=== PATIENT | female | born 1960 | race African-American/Black ===

== ENCOUNTER 2021-05-18 01:17 | Emergency (ER) | payer MEDICARE, MEDICAID ==
[~2021-05-18] VITALS: Ht 167.6 cm; Wt 93.0 kg
[2021-05-18] MEDS ORDERED: HYDROCODONE/ACETAMINOPHEN 5/325MG TABLET PO NR (04:00)
[2021-05-18] MEDS ORDERED: KETOROLAC 15MG/ML VIAL IM NR (04:00)
[2021-05-18] MEDS ORDERED: IBUP-2030 PO (04:26)
[2021-05-18] MEDS ORDERED: HYDR-4001 PO (04:26)
[2021-05-18 07:55] VITALS: BP 126/78
== END 2021-05-18 08:07 | disposition home or self-care (01) ==
LOC: ER 01:17
DX: M54.5 Low back pain (principal); I10 Essential (primary) hypertension; J45.909 Unspecified asthma, uncomplicated; E11.9 Type 2 diabetes mellitus without complications; J44.9 Chronic obstructive pulmonary disease, unspecified
CPT/HCPCS: 96372; 99283; J1885

== ENCOUNTER 2025-09-10 16:57 | Inpatient (IN) | payer MEDICARE, MEDICAID ==
[~2025-09-10] VITALS: Ht 165.1 cm; Wt 109.8 kg
[~2025-09-10 16:57] MED LIST: HYDR-4001 PO; IBUP-2030 PO
[2025-09-10 17:03] VITALS: O2SAT 100
[2025-09-10 21:46] LABS: BASOPHILS % 1.5 % (0.0-2.0); EOSINOPHILS % 3.7 % (0.0-5.0); HEMATOCRIT. 41.4 % (36.0-48.0); HEMOGLOBIN. 13.5 g/dL (12.0-16.0); LYMPHOCYTES % 30.8 % (20.0-50.0); MEAN PLATELET VOLUME 9.1 fl (7.4-10.4); MONOCYTES % 8.5 % (2.0-8.0); NEUTROPHILS % 55.5 % (40.0-76.0); PLATELET 254 x1000/uL (130-400); RED BLOOD CELL COUNT 4.40 mill/uL (4.2-5.4); RED CELL DISTRIBUTION WIDTH 14.2 % (11.6-14.6)
[2025-09-10] MEDS: MORPHINE SULFATE 4 MG/ML INJ (FOR IV/IM USE) IV ONE (21:47)
[2025-09-10] MEDS: SODIUM CHLORIDE 0.9% 1,000 ML IV ONE (21:48)
[2025-09-10] MEDS: BENZONATATE 200MG CAPSULE PO ONE (21:48)
[2025-09-10 22:01] LABS: CREATININE 0.7 mg/dL (0.6-1.0); UREA NITROGEN BLOOD 11 mg/dL (9-23)
[2025-09-10 22:03] LABS: ASPARTATE AMINOTRANSFERASE 24 IU/L (<34); BILIRUBIN DIRECT 0.2 mg/dL (<=3.0); BILIRUBIN TOTAL 0.7 mg/dL (0.1-1.0); PROTEIN TOTAL 7.5 g/dL (6.0-8.3)
[2025-09-10] MEDS: CEFTRIAXONE 1GM/50ML 50 ML IV ONE (23:04)
[2025-09-10] MEDS: VANCOMYCIN 1G PREMIX 200 ML IV ONE (23:43)
[2025-09-11 00:33] LABS: CLARITY URINE CLEAR (CLEAR); COLOR URINE YELLOW (YELLOW); GLUCOSE URINE NEGATIVE (NEGATIVE); KETONES URINE NEGATIVE (NEGATIVE); LEUKOCYTE ESTERASE URINE NEGATIVE (NEGATIVE); NITRITE URINE NEGATIVE (NEGATIVE); OCCULT BLOOD URINE NEGATIVE (NEGATIVE); PH URINE 6.5 (4.5-8.0); PROTEIN URINE NEGATIVE (NEGATIVE); SPECIFIC GRAVITY URINE 1.012 (1.005-1.030); UROBILINOGEN URINE 0.2 E.U./dL (0.2-1.0)
[2025-09-11 04:00] VITALS: BP 160/67; PULSE 89; RESP 20; TEMP 36.6; O2SAT 94
[2025-09-11 04:15] VITALS: BP 160/67; PULSE 89; RESP 20; TEMP 36.5848
[2025-09-11] MEDS ORDERED: DEXTROSE 50% WATER 50ML SYRINGE IV PRN (04:30)
[2025-09-11] MEDS ORDERED: NALOXONE HCL 0.4MG/ML VIAL IV PRN (04:45)
[2025-09-11] MEDS ORDERED: ENOXAPARIN 100MG/ML SYR SUBCUT SCH (05:00)
[2025-09-11] MEDS: HYDROCODONE/ACETAMINOPHEN 5/325MG TABLET PO PRN (05:21)
[2025-09-11] MEDS: POTASSIUM CHLORIDE 20MEQ TABLET SR PO NR (05:33)
[2025-09-11] MEDS: BLOOD SUGAR DIAGNOSTIC STRIP TEST SCH (06:48)
[2025-09-11 08:00] VITALS: BP 163/78; PULSE 78; RESP 16; TEMP 36.7; O2SAT 100
[2025-09-11] MEDS: CLONIDINE 0.1MG TABLET PO SCH (08:50)
[2025-09-11] MEDS: INSULIN LISPRO 100 UNITS/ML SUBCUT SCH (08:51)
[2025-09-11] MEDS ORDERED: ONDANSETRON HCL 4MG/2ML INJ IV PRN (11:30)
[2025-09-11] MEDS ORDERED: IPRATROPIUM/ALBUTEROL 0.5-3(2.5)MG/3ML NEB HHN PRN (11:30)
[2025-09-11] MEDS ORDERED: ACETAMINOPHEN 325MG TABLET PO PRN (11:30)
[2025-09-11 12:00] VITALS: BP 141/67; PULSE 86; RESP 17; TEMP 36.8; O2SAT 100
[2025-09-11 12:49] LABS: BASOPHILS % 0.6 % (0.0-2.0); EOSINOPHILS % 3.2 % (0.0-5.0); HEMATOCRIT. 40.2 % (36.0-48.0); HEMOGLOBIN. 12.8 g/dL (12.0-16.0); LYMPHOCYTES % 31.5 % (20.0-50.0); MEAN PLATELET VOLUME 10.0 fl (7.4-10.4); MONOCYTES % 12.3 % (2.0-8.0); NEUTROPHILS % 52.4 % (40.0-76.0); PLATELET 218 x1000/uL (130-400); RED BLOOD CELL COUNT 4.22 mill/uL (4.2-5.4); RED CELL DISTRIBUTION WIDTH 14.1 % (11.6-14.6)
[2025-09-11 13:06] LABS: CREATININE 0.7 mg/dL (0.6-1.0); TRIGLYCERIDE 58 mg/dL (0-150); UREA NITROGEN BLOOD 9 mg/dL (9-23)
[2025-09-11 13:07] LABS: LDL CHOLESTEROL 63 mg/dL (5-100)
[2025-09-11 13:13] LABS: INR 1.0
[2025-09-11 13:54] LABS: HEPATITIS C AB NON REACTIVE (Neg) (Negative)
[2025-09-11] MEDS: ENOXAPARIN 100MG/ML SYR SUBCUT SCH (14:14)
[2025-09-11] MEDS ORDERED: *PATIENT'S OWN MEDICATION STORAGE XX SCH (14:45)
[2025-09-11 19:58] VITALS: BP 134/62; PULSE 72; RESP 17; TEMP 36.8; O2SAT 100
[2025-09-11 20:00] VITALS: BP 144/73; PULSE 78; RESP 16; TEMP 36.5; O2SAT 97
[2025-09-12] VITALS: BP 134/64; PULSE 73; RESP 18; TEMP 36.7; O2SAT 95
[2025-09-12 04:00] VITALS: BP 145/71; PULSE 67; RESP 17; TEMP 36.7; O2SAT 98
[2025-09-12] MEDS: ACETAMINOPHEN 325MG TABLET PO PRN (04:00)
[2025-09-12 08:00] VITALS: BP 112/60; PULSE 68; RESP 16; TEMP 36.6; O2SAT 100
[2025-09-12 08:05] LABS: BASOPHILS % 0.9 % (0.0-2.0); EOSINOPHILS % 3.1 % (0.0-5.0); HEMATOCRIT. 38.6 % (36.0-48.0); HEMOGLOBIN. 12.5 g/dL (12.0-16.0); LYMPHOCYTES % 40.1 % (20.0-50.0); MEAN PLATELET VOLUME 10.0 fl (7.4-10.4); MONOCYTES % 9.5 % (2.0-8.0); NEUTROPHILS % 46.4 % (40.0-76.0); PLATELET 200 x1000/uL (130-400); RED BLOOD CELL COUNT 4.11 mill/uL (4.2-5.4); RED CELL DISTRIBUTION WIDTH 14.0 % (11.6-14.6)
[2025-09-12 08:13] LABS: CREATININE 0.7 mg/dL (0.6-1.0)
[2025-09-12 08:14] LABS: UREA NITROGEN BLOOD 16 mg/dL (9-23)
[2025-09-12 12:00] VITALS: BP 116/64; PULSE 72; RESP 16; TEMP 36.4; O2SAT 98
[2025-09-12 16:00] VITALS: BP 159/68; PULSE 75; RESP 15; TEMP 36.8; O2SAT 99
[2025-09-12] MEDS: DOCUSATE SODIUM 100MG CAPSULE PO PRN (17:29)
[2025-09-12 20:00] VITALS: BP 144/69; PULSE 69; RESP 16; TEMP 36.7; O2SAT 98
[2025-09-12] MEDS: POLYETHYLENE GLYCOL 3350 (17GM) 1 DOSE PACK PO SCH (21:20)
[2025-09-13] VITALS: BP 140/71; PULSE 65; RESP 18; TEMP 36.1; O2SAT 95
[2025-09-13 04:00] VITALS: BP 130/68; PULSE 69; RESP 20; TEMP 36.2; O2SAT 98
[2025-09-13 08:00] VITALS: BP 143/77; PULSE 68; RESP 17; TEMP 35.9; O2SAT 95
[2025-09-13] MEDS ORDERED: AMLO5TAB88 MT (11:21)
[2025-09-13 12:00] VITALS: BP 155/84; PULSE 68; RESP 17; TEMP 36.1; O2SAT 96
[2025-09-13] MEDS: AMLODIPINE 5MG TABLET PO SCH (12:30)
[2025-09-13 16:00] VITALS: BP 157/75; PULSE 63; RESP 17; O2SAT 97
[2025-09-13 20:00] VITALS: BP 148/56; PULSE 77; RESP 17; TEMP 36.4; O2SAT 95
[2025-09-14] VITALS: BP 147/66; PULSE 67; RESP 18; TEMP 36.5; O2SAT 99
[2025-09-14 04:00] VITALS: BP 147/50; PULSE 67; RESP 19; TEMP 35.9; O2SAT 98
[2025-09-14 08:00] VITALS: BP 147/68; PULSE 77; RESP 18; TEMP 36.1; O2SAT 100
[2025-09-14 12:00] VITALS: BP 135/70; PULSE 80; RESP 18; TEMP 36.7; O2SAT 98
[2025-09-14 16:00] VITALS: BP 140/75; PULSE 75; RESP 18; TEMP 36.4; O2SAT 97
[2025-09-14 20:00] VITALS: BP 105/66; PULSE 69; RESP 16; TEMP 36.5; O2SAT 98
[2025-09-15] VITALS: BP 178/83; PULSE 78; RESP 16; TEMP 36.6; O2SAT 95
[2025-09-15] MEDS: CLONIDINE 0.1MG TABLET PO PRN (01:49)
[2025-09-15 04:00] VITALS: BP 136/60; PULSE 67; RESP 16; TEMP 36.3; O2SAT 98
[2025-09-15] MEDS ORDERED: IOHEXOL-350 100 ML BOTTLE ONE (07:56)
[2025-09-15] MEDS ORDERED: IOHEXOL-350 50 ML BOTTLE ONE (07:57)
[2025-09-15 08:00] VITALS: BP 164/79; PULSE 82; RESP 18; TEMP 35.1; O2SAT 96
[2025-09-15 12:00] VITALS: BP_SYST 152; PULSE 66; RESP 19; TEMP 36.5; O2SAT 99
[2025-09-15 16:00] VITALS: PULSE 68; RESP 19; TEMP 36.7; O2SAT 96
[2025-09-15] MEDS: CEFAZOLIN 1000MG PREMIX 50 ML IV SCH (19:37)
[2025-09-15 20:00] VITALS: BP 154/96; PULSE 84; RESP 18; TEMP 36.4; O2SAT 99
[2025-09-15] MEDS ORDERED: CEFAZOLIN SODIUM 1000MG/VIAL IV SCH (22:00)
[2025-09-15 22:32] LABS: HEMATOCRIT. 44.1 % (36.0-48.0); RED CELL DISTRIBUTION WIDTH 14.1 % (11.6-14.6)
[2025-09-15 22:34] LABS: BASOPHILS % 1.2 % (0.0-2.0); EOSINOPHILS % 3.1 % (0.0-5.0); HEMOGLOBIN. 14.2 g/dL (12.0-16.0); LYMPHOCYTES % 29.6 % (20.0-50.0); MEAN PLATELET VOLUME 9.5 fl (7.4-10.4); MONOCYTES % 11.8 % (2.0-8.0); NEUTROPHILS % 54.3 % (40.0-76.0); PLATELET 261 x1000/uL (130-400); RED BLOOD CELL COUNT 4.74 mill/uL (4.2-5.4)
[2025-09-15 22:45] LABS: CREATININE 0.8 mg/dL (0.6-1.0); UREA NITROGEN BLOOD 13 mg/dL (9-23)
[2025-09-16] VITALS: BP 135/81; PULSE 80; RESP 16; TEMP 36.3; O2SAT 100
[2025-09-16 04:00] VITALS: BP 146/68; PULSE 73; RESP 16; TEMP 36.2; O2SAT 96
[2025-09-16 08:00] VITALS: BP 122/46; PULSE 75; RESP 19; TEMP 35.7; O2SAT 100
[2025-09-16 08:02] LABS: CREATININE 0.7 mg/dL (0.6-1.0)
[2025-09-16 08:03] LABS: UREA NITROGEN BLOOD 13 mg/dL (9-23)
[2025-09-16 08:08] LABS: BASOPHILS % 0.4 % (0.0-2.0); EOSINOPHILS % 3.8 % (0.0-5.0); HEMATOCRIT. 42.6 % (36.0-48.0); HEMOGLOBIN. 13.8 g/dL (12.0-16.0); LYMPHOCYTES % 33.6 % (20.0-50.0); MEAN PLATELET VOLUME 9.4 fl (7.4-10.4); MONOCYTES % 13.4 % (2.0-8.0); NEUTROPHILS % 48.8 % (40.0-76.0); PLATELET 262 x1000/uL (130-400); RED BLOOD CELL COUNT 4.57 mill/uL (4.2-5.4); RED CELL DISTRIBUTION WIDTH 13.9 % (11.6-14.6)
[2025-09-16] MEDS: HYDROCODONE/ACETAMINOPHEN 5/325MG TABLET PO PRN (11:12)
[2025-09-16 12:00] VITALS: BP 160/72; PULSE 73; RESP 18; TEMP 35.9; O2SAT 96
[2025-09-17] VITALS: BP 130/71; PULSE 68; RESP 18; TEMP 36.4; O2SAT 100
[2025-09-17 04:00] VITALS: BP 148/84; PULSE 75; RESP 18; TEMP 36.4; O2SAT 98
[2025-09-17 06:32] LABS: CREATININE 0.6 mg/dL (0.6-1.0); HEMATOCRIT. 42.9 % (36.0-48.0); HEMOGLOBIN. 13.8 g/dL (12.0-16.0); MEAN PLATELET VOLUME 9.4 fl (7.4-10.4); PLATELET 234 x1000/uL (130-400); RED BLOOD CELL COUNT 4.55 mill/uL (4.2-5.4); RED CELL DISTRIBUTION WIDTH 14.1 % (11.6-14.6)
[2025-09-17 06:33] LABS: UREA NITROGEN BLOOD 15 mg/dL (9-23)
[2025-09-17 08:00] VITALS: BP 148/60; PULSE 72; RESP 14; TEMP 36.6; O2SAT 95
[2025-09-17] MEDS ORDERED: HYDR-4001 MT (08:44)
[2025-09-17] MEDS ORDERED: SILV20CR13 TP (08:44)
[2025-09-17] MEDS ORDERED: TOPUD PO (08:44)
[2025-09-17] MEDS ORDERED: AMLO5TAB88 PO (08:44)
[2025-09-17] MEDS ORDERED: CLOT45CR62 VG (08:44)
[2025-09-17 16:00] VITALS: BP 157/73; PULSE 80; RESP 18; TEMP 36.2; O2SAT 96
[2025-09-17 20:00] VITALS: BP 142/67; PULSE 78; RESP 18; TEMP 36.2; O2SAT 98
[2025-09-18] VITALS: BP 158/64; PULSE 69; RESP 20; TEMP 36.6; O2SAT 98
[2025-09-18 08:00] VITALS: BP 142/64; PULSE 80; RESP 16; TEMP 36.7; O2SAT 100
[2025-09-18 12:00] VITALS: BP 134/62; PULSE 88; RESP 16; TEMP 36.4; O2SAT 100
[2025-09-18 16:00] VITALS: BP 138/77; PULSE 79; RESP 17; TEMP 36.4; O2SAT 100
[2025-09-18 18:33] LABS: LYMPHOCYTES % MANUAL 38.0 % (20.0-60.0); MONOCYTES % MANUAL 16.0 % (2.0-8.0); NEUTROPHILS % MANUAL 46.0 % (45.0-75.0); PLATELET ESTIMATE NORMAL
[2025-09-18 20:00] VITALS: BP 136/69; PULSE 84; RESP 18; TEMP 36.5; O2SAT 99
[2025-09-19 04:00] VITALS: BP 129/65; PULSE 68; RESP 18; TEMP 36.7; O2SAT 98
[2025-09-19 08:00] VITALS: BP 145/64; PULSE 88; RESP 16; TEMP 36.6; O2SAT 98
[2025-09-19 20:00] VITALS: BP 142/55; PULSE 78; RESP 18; TEMP 36.5; O2SAT 98
[2025-09-20 04:00] VITALS: BP 134/68; PULSE 76; RESP 18; TEMP 36.7; O2SAT 98
[2025-09-20 08:00] VITALS: BP 150/71; PULSE 73; RESP 18; TEMP 36.6; O2SAT 98
[2025-09-20 12:00] VITALS: BP 144/68; PULSE 74; RESP 18; TEMP 36.5; O2SAT 100
[2025-09-20 14:14] VITALS: BP 144/68; PULSE 74; RESP 18; TEMP 97.7
[2025-09-20 15:07] VITALS: BP 144/68; PULSE 74; RESP 18
[2025-09-20] MEDS ORDERED: NALOXONE HCL 0.4MG/ML VIAL IV PRN (17:30)
[2025-09-20] MEDS ORDERED: ENOXAPARIN 120MG/0.8ML SYR SUBCUT SCH (21:00)
== END 2025-09-20 16:40 | disposition home health service (06) | DRG 603 ==
LOC: ER 16:57 → 7EST 23:48 → EDBEDREQTM 23:52 → EDBEDREQ 23:52 → ENRESERV 09-11 01:11
PROVIDERS: ADMIT Internal Medicine; ATTEND Internal Medicine
DX: L03.115 Cellulitis of right lower limb (principal); I87.311 Chronic venous hypertension (idiopathic) with ulcer of right lower extremity; Z59.00 Homelessness unspecified; L97.219 Non-pressure chronic ulcer of right calf with unspecified severity; E11.51 Type 2 diabetes mellitus with diabetic peripheral angiopathy without gangrene; D72.821 Monocytosis (symptomatic); Z68.41 Body mass index [BMI] 40.0-44.9, adult; J44.9 Chronic obstructive pulmonary disease, unspecified; I70.203 Unspecified atherosclerosis of native arteries of extremities, bilateral legs; I10 Essential (primary) hypertension; L97.319 Non-pressure chronic ulcer of right ankle with unspecified severity; E11.65 Type 2 diabetes mellitus with hyperglycemia; E66.01 Morbid (severe) obesity due to excess calories; E87.6 Hypokalemia; I87.2 Venous insufficiency (chronic) (peripheral); F17.210 Nicotine dependence, cigarettes, uncomplicated; Z79.4 Long term (current) use of insulin; Z79.84 Long term (current) use of oral hypoglycemic drugs; Z79.899 Other long term (current) drug therapy
CPT/HCPCS: 36415; 71045; 73610; 75635; 80048; 80061; 80076; 81003; 82962; 83036; 84443; 85025; 86705; 87070; 87340; 93923; 93970; 97163; 97166; 97530; 97535; 99285; J0690; J0696; J1650; J1815; J2270; J3373; J7030; Q9967